=== PATIENT | male | born 1945 | race Caucasian/White ===

== ENCOUNTER 2023-01-25 16:02 | Emergency (ER) | payer MEDICARE ==
[~2023-01-25] VITALS: Ht 188 cm; Wt 104.3 kg
[2023-01-25 16:43] LABS: CLARITY,URINE SL CLOUDY (CLEAR); COLOR,URINE YELLOW (YELLOW); KETONES,URINE NEGATIVE (NEGATIVE); LEUKOCYTE ESTERASE ,URINE NEGATIVE (NEGATIVE); NITRITE,URINE NEGATIVE (NEGATIVE); PROTEIN,URINE DIPSTICK NEGATIVE (NEGATIVE); URINE UROBILINOGEN 0.2 mg/dL (0.2 - 1)
[2023-01-25 17:14] VITALS: BP 129/85; PULSE 75; RESP 18; TEMP 98.3; O2SAT 99
== END 2023-01-25 17:28 | disposition home or self-care (01) ==
LOC: ER 16:08
DX: R33.9 Retention of urine, unspecified (principal); I10 Essential (primary) hypertension; I48.91 Unspecified atrial fibrillation; K21.9 Gastro-esophageal reflux disease without esophagitis; E78.5 Hyperlipidemia, unspecified
CPT/HCPCS: 51700; 81001; 87086; 99284

== ENCOUNTER 2024-06-02 09:38 | Emergency (ER) | payer MEDICARE ==
[~2024-06-02] VITALS: Ht 188 cm; Wt 104.6 kg
[2024-06-02] MEDS ORDERED: LOSARTAN POTASS25 MG PO (10:15)
[2024-06-02] MEDS ORDERED: ELIQUIS5 MG PO (10:15)
[2024-06-02] MEDS ORDERED: METOPROLOL SUCC50 MG PO (10:15)
[2024-06-02] MEDS: CEFTRIAXONE 1 GM VIAL IM ONE (11:35)
[2024-06-02 11:41] VITALS: PULSE 64; RESP 16; TEMP 98.1; O2SAT 97
[2024-06-02] MEDS ORDERED: CEFDINIR300 MG PO (11:46)
== END 2024-06-02 11:55 | disposition home or self-care (01) ==
LOC: FSED 09:40
DX: N12 Tubulo-interstitial nephritis, not specified as acute or chronic (principal); I10 Essential (primary) hypertension; I48.91 Unspecified atrial fibrillation; I25.10 Atherosclerotic heart disease of native coronary artery without angina pectoris; E78.5 Hyperlipidemia, unspecified; K21.9 Gastro-esophageal reflux disease without esophagitis; M54.9 Dorsalgia, unspecified; G89.29 Other chronic pain; Z85.89 Personal history of malignant neoplasm of other organs and systems
CPT/HCPCS: 80048; 81003; 85025; 87086; 87186; 96365; 99284; J0696